=== PATIENT | female | born 1940 | race Caucasian/White ===

== ENCOUNTER 2017-10-07 07:14 | Observation (INO) | payer OTHER, BC ==
[~2017-10-07] VITALS: Ht 162.6 cm; Wt 60.9 kg
[2017-10-07 07:40] LABS: POINT-OF-CARE METER ID UU13113747; POINT-OF-CARE USER ID NUTJNM
[2017-10-07 08:03] LABS: EOSINOPHIL (%) 0.3 % (0-5); HEMATOCRIT 34.1 % (36.0-46.0); IMMATURE GRANULOCYTE (%) 0.4 % (0.0-0.7); IMMATURE GRANULOCYTE COUNT 0.1 K/uL; INSTRUMENT ABS NEUTROPHIL CT 9.4 K/uL; LYMPHOCYTE COUNT 1.4 K/uL (1.0-2.8); MCH 27.9 PG (29.0-34.0); MCHC 32.6 G/DL (30.0-36.0); MCV 85.7 FL (83-99); MEAN PLAT.VOLUME 9.2 uM^3 (9.5-12.4); MONOCYTE (%) 5.5 % (3-12); MONOCYTE COUNT 0.6 K/uL (0-0.8); NEUTROPHIL (%) 81.5 % (45-76); NEUTROPHIL COUNT 9.4 K/uL (1.8-6.4); PLATELET COUNT 323 K/uL (156-360); RBC DIS.WIDTH-CV 16.6 % (11.8-14.6); RBC DIS.WIDTH-SD 51.7 % (39-53); RED BLOOD COUNT 3.98 M/uL (3.80-5.20); WHITE BLOOD COUNT 11.6 K/uL (4.1-10.2)
[2017-10-07 08:09] LABS: PROTHROMBIN TIME 10.8 SEC (10.2-12.9)
[2017-10-07 08:11] LABS: PTT 25.8 SEC (25-37)
[2017-10-07 08:28] LABS: TROP-I INTERPRETATION NEGATIVE; TROPONIN-I < 0.01 ng/mL (0.0-0.30)
[2017-10-07 08:41] LABS: CHLORIDE 99 mEq/L (99-109); POTASSIUM 4.1 mEq/L (3.7-5.4); SODIUM 132 mEq/L (136-147)
[2017-10-07 08:42] LABS: GLUCOSE 158 mg/dL (70-99)
[2017-10-07 08:44] LABS: ANION GAP 13 MEQ/L (2-14)
[2017-10-07 08:46] LABS: GFR ESTIMATE (CALCULATED) 42 mL/min/
[2017-10-07 08:47] LABS: UREA NITROGEN (BUN) 18 mg/dL (9-23)
[2017-10-07] MEDS ORDERED: DONEPEZIL HCL10 MG PO (10:57)
[2017-10-07 10:59] LABS: Estimated Average Glucose 134 mg/dL (70-123); HEMOGLOBIN A1c (GLYCOHEMOGLOB) 6.3 % HGB (Below 5.7)
[2017-10-07] MEDS ORDERED: EZETIMIBE10 MG PO (10:59)
[2017-10-07] MEDS ORDERED: BACTRIM,SEPT1 TABLET PO (10:59)
[2017-10-07] MEDS ORDERED: NAMENDA XR28 MG PO (11:00)
[2017-10-07] MEDS ORDERED: BUPROPION XL150 MG PO (11:00)
[2017-10-07] MEDS ORDERED: PREDNISONE5 MG PO (11:01)
[2017-10-07] MEDS ORDERED: GLIMEPIRIDE2 MG PO (11:01)
[2017-10-07] MEDS ORDERED: ATENOLOL25 MG PO (11:02)
[2017-10-07] MEDS ORDERED: METFORMIN HCL1000 MG PO (11:02)
[2017-10-07] MEDS ORDERED: LEVOTHYROXINE100 MCG PO (11:03)
[2017-10-07 11:04] LABS: HDL CHOLESTEROL 64 MG/DL (Desirable>=50); LDL CHOLESTEROL 54 mg/dL (Desirable<100); NON-HDL CHOLESTEROL 60 mg/dL (Desirable<160); SAMPLE HEMOLYSIS CHECK 0; SAMPLE ICTERIC CHECK 0; SAMPLE LIPEMIA CHECK 0; TOTAL CHOLESTEROL 124 mg/dL (Desirable<200); TRIGLYCERIDES 28 MG/DL (Normal: <150)
[2017-10-07] MEDS ORDERED: TRIAMTERENE-HC1 EAC1 PO (11:04)
[2017-10-07] MEDS ORDERED: ATORVASTATIN CA20 MG PO (11:04)
[2017-10-07 11:10] LABS: POINT-OF-CARE METER ID UU13113747
[2017-10-07 11:17] LABS: POINT-OF-CARE METER ID UU13113747
[2017-10-07 11:24] VITALS: BP 119/59
[2017-10-07 12:59] LABS: POINT-OF-CARE METER ID UU13113700
[2017-10-07 16:56] LABS: TROP-I INTERPRETATION NEGATIVE; TROPONIN-I < 0.01 ng/mL (0.0-0.30)
[2017-10-07 17:05] VITALS: BP 110/54
[2017-10-07 17:29] LABS: POINT-OF-CARE METER ID UU13113700
[2017-10-07 19:43] VITALS: BP 109/59
[2017-10-07 20:00] VITALS: BP 109/59
[2017-10-07 20:41] LABS: TROP-I INTERPRETATION NEGATIVE; TROPONIN-I < 0.01 ng/mL (0.0-0.30)
[2017-10-07 21:01] LABS: POINT-OF-CARE METER ID UU13113700
[2017-10-07 23:52] VITALS: BP 113/55
[2017-10-08 03:16] VITALS: BP 130/60
[2017-10-08 07:53] VITALS: BP 121/58
[2017-10-08 08:49] LABS: POINT-OF-CARE METER ID UU13113700
[2017-10-08 11:15] VITALS: BP 113/58
[2017-10-08 12:37] LABS: POINT-OF-CARE METER ID UU13113700
[2017-10-08] MEDS ORDERED: ATORVASTATIN CA40 MG PO (12:41)
[2017-10-08] MEDS ORDERED: ASPIR-LOW81 MG PO (12:41)
== END 2017-10-08 16:44 | disposition home or self-care (01) ==
LOC: EME → EDBD 07:14 → EDOF 09:47 → 5WEST 09:47 → EDOF 09:47 → ENRESERV 09:49 → 5WEST 11:01
PROVIDERS: Emergency Medicine; Internal Medicine
DX: E11.649 Type 2 diabetes mellitus with hypoglycemia without coma (principal); G30.9 Alzheimer's disease, unspecified; F02.80 Dementia in other diseases classified elsewhere, unspecified severity, without behavioral disturbance, psychotic disturbance, mood disturbance, and anxiety; I10 Essential (primary) hypertension; E03.9 Hypothyroidism, unspecified; Z87.891 Personal history of nicotine dependence; Z79.82 Long term (current) use of aspirin
CPT/HCPCS: 70450; 70551; 71010; 80048; 80061; 82948; 83036; 84484; 85025; 85610; 85730; 93005; 93306; 93880; 99281; 99285; G0378; J1650; J7512